=== PATIENT | female | born 2000 | race Caucasian/White ===

== ENCOUNTER 2024-02-17 15:05 | Emergency (ER) | payer MEDICAID ==
[~2024-02-17] VITALS: Ht 167.6 cm; Wt 109.0 kg
[2024-02-17 15:13] VITALS: TEMP 98.5; O2SAT 98
[2024-02-17 16:04] VITALS: BP 119/72; PULSE 72; RESP 14; O2SAT 100
== END 2024-02-17 17:40 | disposition home or self-care (01) ==
LOC: ER 15:05
DX: J06.9 Acute upper respiratory infection, unspecified (principal); J45.909 Unspecified asthma, uncomplicated
CPT/HCPCS: 99281

== ENCOUNTER 2024-02-29 13:35 | Emergency (ER) | payer MEDICAID ==
[~2024-02-29] VITALS: Ht 167.6 cm; Wt 108.0 kg
[2024-02-29 13:44] VITALS: O2SAT 100
[2024-02-29 13:59] VITALS: BP 124/75; PULSE 92; RESP 18; TEMP 98.3; O2SAT 100
== END 2024-02-29 18:15 | disposition home or self-care (01) ==
LOC: ER 13:40
DX: U07.1 COVID-19 (principal)
CPT/HCPCS: 99281